=== PATIENT | female | born 2000 | race Caucasian/White ===

== ENCOUNTER 2024-07-26 23:41 | Emergency (ER) | payer OTHER ==
[2024-07-27] VITALS: BP 135/82; PULSE 70; RESP 17; TEMP 97.3; O2SAT 100
[2024-07-27] MEDS ORDERED: TYLENOL 325 MG ONE
[2024-07-27] MEDS: TYLENOL 325 MG PO ONE
--- NOTE | 2024-07-27 00:04 | ERPHSYRPT ---
- History of Present Illness Time Seen by Provider: 07/26/24 23:59 Source: patient Exam Limitations: no limitations Patient Subjective Stated Complaint: back injury from work, pt states she was lifting a patient into a car and pt was resisting and strained her back Triage Nursing Assessment: pt rating pain 6/10, pt described pain as a constant ache, pt states pain is worse with lifting. denies pain upon palpation. pt denies any numbness or tingling in lower extremities. 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 Patient advises that she was assisting a patient into a vehicle yesterday. Patient was difficult to assist in the process she injured her back. The pain worsened over the course of the day. Patient states that she was experiencing significant discomfort today while working out. Pain described as an ache that is localized to the right lumbar and thoracic paraspinal musculature into the latissimus dorsi area. Pain is localized no radiation. No systemic manifestationor symptomology. Patient took 800 mg of NSAID approximately an an hour and a half ago. Pain is still significant. Patient rates her pain 6 out of 10. No change in bowel bladder function. No saddle anesthesia. No lower extremity weakness. No associated fever or recent back procedure. Patient otherwise feels well. She voices no other complaints or concerns at this time. Patient denies urinary symptomology Portions of this note were created with voice recognition technology. There may be grammatical, spelling, punctuation or sound alike errors Timing/Duration: yesterday Method of Injury: other (Assisting patient into a vehicle) Quality: aching Back Pain Location: paraspinous muscles Severity of Pain-Max: moderate Severity of Pain-Current: mild Modifying Factors: Improves With: movement Associated Symptoms: denies symptoms Previous symptoms: no prior history Allergies/Adverse Reactions: No Known Drug Allergies Allergy (Verified 07/26/24 23:49) Home Medications: No Reportable Medications [No Reported Medications] 07/26/24 [History] Hx Tetanus, Diphtheria Vaccination/Date Given: Yes Hx Influenza Vaccination/Date Given: Yes Hx Pneumococcal Vaccination/Date Given: No Immunizations Up to Date: Yes Travel Risk - International Travel Have you traveled outside of the country in past 3 weeks: No - Emerging Infectious Disease Are you exhibiting symptoms associated with any current EIDs: No - Review of Systems Constitutional: No Symptoms, No Fever, No Chills Eyes: No Symptoms Ears, Nose, & Throat: No Symptoms Respiratory: No Symptoms, No Cough, No Dyspnea Cardiac: No Symptoms, No Chest Pain, No Edema, No Syncope Abdominal/Gastrointestinal: No Symptoms, No Abdominal Pain, No Nausea, No Vomiting, No Diarrhea Genitourinary Symptoms: No Symptoms, No Dysuria Musculoskeletal: No Symptoms, No Back Pain, No Neck Pain Skin: No Symptoms, No Rash Neurological: No Symptoms, No Dizziness, No Focal Weakness, No Sensory Changes Psychological: No Symptoms Endocrine: No Symptoms Hematologic/Lymphatic: No Symptoms Immunological/Allergic: No Symptoms All Other Systems: Reviewed and Negative - Past Medical History Pertinent Past Medical History: Yes Neurological History: No Pertinent History ENT History: No Pertinent History Cardiac History: No Pertinent History Respiratory History: No Pertinent History Endocrine Medical History: No Pertinent History Musculoskeletal History: No Pertinent History GI Medical History: No Pertinent History History: No Pertinent History Psycho-Social History: Anxiety Female Reproductive Disorders: No Pertinent History - Past Surgical History Past Surgical History: No Neuro Surgical History: No Pertinent History Cardiac: No Pertinent History Respiratory: No Pertinent History Gastrointestinal: No Pertinent History Genitourinary: No Pertinent History Musculoskeletal: No Pertinent History Female Surgical History: No Pertinent History - Female History Hx Last Menstrual Period: 07/18/24 Hx Now: No - Social History Smoking Status: Never smoker Exposure to second hand smoke: No Drug Use: none - Social Determinants of Health Will the patient participate in the screening: Yes Do you worry about a steady place to live?: No Do you have any problems with any of the following?: No known problems In the past 12 months,have you had to go without utilities?: No Transportation Issues: No Has anyone in your support network made you feel unsafe?: No Have you or anyone in your house had to go without enough: No - Nursing Vital Signs Nursing Vital Signs: Initial Vital Signs Temperature 97.3 F 07/26/24 23:49 Pulse Rate 70 07/26/24 23:49 Respiratory Rate 07/26/24 23:49 Blood Pressure 135/82 07/26/24 23:49 O2 Sat by Pulse Oximetry 100 07/26/24 23:49 Pain Scale Pain Intensity 6 - Physical Exam General Appearance: no apparent distress, alert Eye Exam: PERRL/EOMI, eyes nml inspection Ears, Nose, Throat Exam: normal ENT inspection Neck Exam: normal inspection, full range of motion, No meningismus, No midline tenderness Respiratory Exam: normal breath sounds, lungs clear, airway intact, No respiratory distress Cardiovascular Exam: regular rate/rhythm, normal heart sounds Gastrointestinal Exam: soft, No tenderness, No mass Back Exam: other (Tenderness to palpation along the lumbar spine right paraspinal musculature up into the lower aspect of the right latissimus dorsi.) Extremity Exam: normal inspection, normal range of motion, No calf tenderness, No pedal edema Neurologic Exam: alert, oriented x 3, cooperative, web analyst II-XII nml as tested, normal mood/affect, nml station & gait, sensation nml, No motor deficits Skin Exam: normal color, warm, dry, No rash Lymphatic Exam: No adenopathy SpO2 Interpretation: normal SpO2: 100 O2 Delivery: Room Air - Course Nursing assessment & vital signs reviewed: Yes Ordered Tests: Medication Summary Discontinued Medications Generic Name Dose Route Start Last Admin Trade Name Freq PRN Reason Stop Dose Admin Acetaminophen 975 mg 07/26/24 23:55 Acetaminophen 325 Mg Tablet PO 07/26/24 23:56 STAT ONE - Progress Progress: improved Progress Note: 23-year-old female presents to our ED with back pain. Patient injured her back yesterday while assisting a patient. Physical exam reveals tenderness along the right lumbar paraspinal into the right lower dorsal. Patient declined steroids. Patient agreed to Tylenol. No indication for imaging studies. No tenderness to palpation along midline/spine. Complexity problem addressed is moderate acute complicated. No critical care time. Complex of data reviewed and analyzed is none. Diagnosis made based on history and physical exam. Risk of complication and or risk of morbidity/mortality patient management is low. Vital stable. Time spent to discharge patient is approximately 15 minutes. Plan of care established for shared decision making. No social determinants of health present to impede follow-up. Portions of this note were created with voice recognition technology. There may be grammatical, spelling, punctuation or sound alike errors 07/27/24 00:04 07/27/24 00:16 Counseled pt/family regarding: diagnosis, need for follow-up - Departure Departure Disposition: Home Clinical Impression: Lumbosacral strain, Back pain Condition: Stable Critical Care Time: No Referrals: SHARRON,LATONIA HELEN, MD [Primary Care Provider] - Follow up/PCP as directed Additional Instructions: Discharge/Care Plan MARKO BAEZ was seen on 07/27/24 in the Emergency Room. The patient was counseled regarding Diagnosis,Lab results, Imaging studies, need for follow up and when to return to the Emergency Room. Prescriptions given: Discharge Note I have spoken with the patient and/or caregivers. I have explained the patient's condition, diagnosis and treatment plan based on the information available to me at this time. I have answered the patient's and/or caregiver's questions and addressed any concerns. The patient and/or caregivers have as good understanding of the patient's diagnosis, condition and treatment plan as can be expected at this point. The vital signs have been stable. The patient's condition is stable and appropriate for discharge from the emergency department. The patient will pursue further outpatient evaluation with the primary care physician or other designated or consulting physician as outlined in the discharge instructions. The patient and/or caregivers are agreeable to this plan of care and follow-up instructions have been explained in detail. The patient and/or caregivers have received these instruction. The patient/and or caregivers are aware that any significant change in condition or worsening of symptoms should prompt an immediate return to this or the closest emergency department or call 911.
== END 2024-07-27 00:22 | disposition home or self-care (01) ==
LOC: ED 23:41
DX: S39.012A Strain of muscle, fascia and tendon of lower back, initial encounter (principal); M54.9 Dorsalgia, unspecified; X50.0XXA Overexertion from strenuous movement or load, initial encounter; Y93.F2 Activity, caregiving, lifting; Y92.538 Other ambulatory health services establishments as the place of occurrence of the external cause
CPT/HCPCS: 99281; A9270-GY